=== PATIENT | female | born 1960 | race Asian ===

== ENCOUNTER 2025-03-11 01:32 | Emergency (ER) | payer OTHER ==
[~2025-03-11] VITALS: Ht 149.9 cm; Wt 53.2 kg
[2025-03-11 02:21] LABS: PLATELET COUNT (AUTO) 372 K/uL (150-450); RED BLOOD CELL COUNT(AUTO) 4.81 MIL/uL (4.00-5.20); RED CELL DISTRIBUTION WIDTH 12.6 % (11.5-14.5); WHITE BLOOD COUNT (AUTO) 6.8 K/uL (4.5-11.0)
[2025-03-11 02:30] LABS: CALCIUM, TOTAL 9.0 mg/dL (8.8-10.5); CREATININE 0.44 mg/dL (0.60-1.30); GLOMERULAR FILTR. RATE CALC > 60 mL/min (>60); GLUCOSE,RANDOM 103 mg/dL (70-110); SODIUM SERUM 144 mmol/L (136-145); UREA NITROGEN, BLOOD 9 mg/dL (7-18)
[2025-03-11 03:41] VITALS: BP 141/78; PULSE 89; RESP 17; O2SAT 98
== END 2025-03-11 03:33 | disposition home or self-care (01) ==
LOC: EMS 01:47
DX: I10 Essential (primary) hypertension (principal); Z90.710 Acquired absence of both cervix and uterus
CPT/HCPCS: 80048; 85025; 93005; 99284